=== PATIENT | male | born 1975 | race Caucasian/White ===

== ENCOUNTER → 2016-11-04 | Outpatient (CLI) | payer SELFPAY ==
[~2016-11-04] MED LIST: IBUPROFEN800 MG PO; NO MEDICATIONS; NORCO 5/325 TAB1 TAB PO; PREDNISONE10 MG/DOSE PO
--- NOTE | ~2016-11-04 | CR58 ---
[facility] A Service of [facility] & [facility] RADIOLOGY TEXT RESULTS PATIENT: JASMINE GUTIERREZ LOCATION: [facility] : 79 UNIT #: [id number] AGE: [address]: Olive Lafleur SEX: M ORDER DR: [id number] [address] [address] [id number] O MR#: [id number] Acc #: [id number] NAME: JASMINE GUTIERREZ : 1975 SEX: M STUDY DATE/TIME: 11/04/2016 10:00 UNIT: [facility] ROOM: STUDY DESCRIPTION: CR Cervical Spine 2 or 3 Views Attending Physician: Olive Lafleur A.P.R.N. Referring Physician: Olive Lafleur A.P.R.N. Ordering Physician: Olive Lafleur A.P.R.N. Primary Care Physician: Olive Lafleur A.P.R.N. MEDICAL IMAGING REPORT This report is preliminary unless electronic signature is present. EXAM Cervical spine 2 views 11/04/2016 HISTORY Neck pain, cervicalgia left side for 1 year with popping and cracking in left side of neck. No known injury. FINDINGS 2 views of the cervical spine demonstrate no fracture. There is 2 mm anterolisthesis of C2 on C3. The remainder of the posterior vertebral body line is intact. There is degenerative change with moderate disc space narrowing at C6-7 with anterior and posterior osteophytes at the C6-7 level. There is mild degenerative change involving the articular facets. There is no retropharyngeal soft tissue swelling. IMPRESSION 1. 2 mm anterolisthesis of C2 on C3 is likely due to facet arthropathy. 2. Degenerative changes within the cervical spine as detailed above. No acute abnormality. 3. There is scoliosis of the upper thoracic spine is noted. Dictated by... Moisés Junior M.D. THIS IS AN ELECTRONICALLY VERIFIED REPORT Moisés Junior M.D. at 11/05/2016 7:45 AM YENNIFER/kristian TD: 11/04/2016 11:07 JOB #: [id number] [facility] A Service of [facility] & [facility] RADIOLOGY TEXT RESULTS PATIENT: JASMINE GUTIERREZ LOCATION: [facility] : [birth year] UNIT #: [id number] AGE: [address]: Olive Lafleur SEX: M ORDER DR: MEDICAL IMAGING REPORT Page 1 of 1
== END | disposition home or self-care (01) ==
LOC: SRAD 09:54
DX: M54.2 Cervicalgia (principal); M43.12 Spondylolisthesis, cervical region; M47.812 Spondylosis without myelopathy or radiculopathy, cervical region
CPT/HCPCS: 72040